=== PATIENT | male | born 1990 | race Caucasian/White ===

== ENCOUNTER 2021-06-13 19:23 | Emergency (ER) | payer SELFPAY ==
[2021-06-13 19:34] VITALS: BP 147/67; PULSE 67; RESP 20; TEMP 36.3; O2SAT 100
[2021-06-13 19:40] VITALS: BP 147/67; PULSE 67; RESP 20; TEMP 36.3; O2SAT 100
--- NOTE | 2021-06-13 19:44 | ED.DENTAL ---
HPI - Dental/Oral General Chief complaint: Dental/Oral Stated complaint: Toothache Time Seen by Provider: 06/13/21 19:39 Source: patient and RN notes reviewed Mode of arrival: ambulatory Limitations: no limitations History of Present Illness HPI Narrative: Patient presents today with left upper dental pain x4 to 5 days. States he believes his pain is originating from a cracked tooth that has been cracked for some time. Denies fever, shortness of breath, difficulty swallowing, facial swelling. Currently rates his pain 8/10 and has been taking ibuprofen with mild relief. Describes pain as throbbing. He does not have a dentist. No recent antibiotic use. Patient does smoke cigarettes, vapes, and smokes marijuana. MD Complaint: tooth pain Related Data Home Medications Medication Instructions Recorded Confirmed No Home Medications 06/13/21 06/13/21 Allergies Allergy/AdvReac Type Severity Reaction Status Date / Time No Known Allergies Allergy Verified 06/13/21 19:40 Review of Systems Review of Systems: CONSTITUTIONAL: Denies body aches, fever, chills, or sweats. EYES: Denies visual changes, redness, or discharge. ENT: Denies rhinorrhea, congestion, sore throat, or otalgia.+ Tooth pain CARDIOVASCULAR: Denies chest pain, palpitations, or edema. RESPIRATORY: Denies cough or dyspnea. GASTROINTESTINAL: Denies abdominal pain, nausea, vomiting, or diarrhea. GENITOURINARY: Denies dysuria or hematuria. SKIN: Denies rash, itching, or wounds. MUSCULOSKELETAL: Denies back pain, joint pain, or myalgia. NEUROLOGIC: Denies headache, numbness, tingling, or weakness. PSYCH: Denies depression or anxiety. PMFSH Comments At time of signature, I have reviewed and agree with nursing past medical, surgical, social and family history unless otherwise noted. Please see nursing chart for further information. There is no relevant family history pertinent to the presenting complaint Exam Narrative: GENERAL: Well-appearing, well-nourished, and in no acute distress. HEAD: Normocephalic, atraumatic. EYES: EOMI. No redness or drainage. Conjunctivae normal. ENT: Mucous membranes pink and moist. Throat normal. Uvula midline. Gross dental decay throughout. Patient localizes pain to tooth #14 that is tender to palpation. Tooth is fractured. Multiple fillings in the tooth and surrounding teeth. No facial swelling noted. No obvious periapical abscess noted. NECK: Normal AROM. CHEST: No respiratory distress. EXTREMITIES: Normal range of motion. No edema. SKIN: Warm, dry, no rash. Capillary refill normal. Normal skin turgor. NEURO: No focal deficits. Alert and oriented x3. Gait steady. PSYCH: Normal affect. No signs of depression or anxiety. Course Vital Signs Vital signs: Vital Signs Temperature 97.4 F L 06/13/21 19:34 Pulse Rate 67 06/13/21 19:34 Respiratory Rate 20 06/13/21 19:34 Blood Pressure 147/67 H 06/13/21 19:34 Pulse Oximetry 100 06/13/21 19:34 Temperature 97.4 F L 06/13/21 19:40 Pulse Rate 67 06/13/21 19:40 Respiratory Rate 20 06/13/21 19:40 Blood Pressure 147/67 H 06/13/21 19:40 Pulse Oximetry 100 06/13/21 19:40 Reviewed. Pt has been instructed to follow up with his PCP regarding his elevated blood pressure today. MDM - Dental/Oral Differential Diagnosis Differential diagnosis: Likely gingival abscess, dental caries, toothache, dental abscess and fracture of tooth Critical Care Time Critical Care Time Critical Care Time: No Discharge Plan Discharge Clinical Impression: Fracture of tooth Qualifiers: Encounter type: initial encounter Fracture type: closed Qualified Code(s): S02.5XXA - Fracture of tooth (traumatic), initial encounter for closed fracture Patient Disposition: Home, Self-Care Condition: Stable Instructions: Antibiotic Form, Dental Abscess (ED) Additional Instructions: Please take the amoxicillin as prescribed until gone. Follow-up with the dentist as so
== END 2021-06-13 19:50 | disposition home or self-care (01) ==
PROVIDERS: Emergency Provider Nurse Practitioner
DX: S02.5XXA Fracture of tooth (traumatic), initial encounter for closed fracture (principal); X58.XXXA Exposure to other specified factors, initial encounter
CPT/HCPCS: 99203; G0463